=== PATIENT | male | born 1955 | race Native Hawaiian/Other Pacific Islander ===

== ENCOUNTER 2021-04-14 08:45 | Day surgery (SDC) | payer OTHER ==
[2021-02-26 10:04] LABS: PLATELET COUNT 156 K/uL (142-355)
[2021-02-26 10:17] LABS: POTASSIUM 4.3 mmol/L (3.6-5.2)
[2021-04-12 10:15] LABS: POTASSIUM 4.2 mmol/L (3.6-5.2)
[~2021-04-14] VITALS: Ht 152.4 cm; Wt 0.5 kg
== END 2021-04-14 11:35 | disposition home or self-care (01) ==
LOC: OR 08:45
PROVIDERS: ATTEND Internal Medicine Gastroenterology
PROC: 0DBN8ZZ Excision of Sigmoid Colon, Via Natural or Artificial Opening Endoscopic (ICD-10-PCS; principal; 2021-04-14)
DX: D12.5 Benign neoplasm of sigmoid colon (principal); K57.30 Diverticulosis of large intestine without perforation or abscess without bleeding; K64.8 Other hemorrhoids; Z12.11 Encounter for screening for malignant neoplasm of colon; Z80.0 Family history of malignant neoplasm of digestive organs; D50.8 Other iron deficiency anemias; Z20.822 Contact with and (suspected) exposure to COVID-19
CPT/HCPCS: 80053; 85027; 87635; J2704; U0003

== ENCOUNTER 2021-10-01 09:48 | Outpatient (CLI) | payer OTHER | END 2021-10-01 18:55 | disposition home or self-care (01) | LOC: CT 09:48 | PROVIDERS: ATTEND Internal Medicine Gastroenterology | DX: R10.30 Lower abdominal pain, unspecified (principal) | CPT/HCPCS: Q9963 ==